=== PATIENT | female | born 1950 | race Caucasian/White ===

== ENCOUNTER 2024-08-11 15:44 | Inpatient (IN) | payer MEDICARE, OTHER, SELFPAY ==
[2024-08-11] VITALS (26 sets, daily range): BP systolic 86–164; BP diastolic 50–98; BMI 34.4; BMI 28.9
--- NOTE | 2024-08-11 12:13 | ED.GENMED ---
History of Present Illness
General
Chief Complaint: Change in Mental Status
Source: patient and ambulance crew
Exam Limitations: none
Time Seen by Provider: 08/11/24 12:07
Nursing documentation reviewed up to this point in time: agreed with
History of Present Illness
History of Present Illness:
74-year-old female presents emergency department after family was unable to reach her for 2 days. She complains of global pain and had tachycardia. EMS called due to her low blood pressure and tachycardia.
Past History
Past History
ED Past Medical History: Arrthythmia and IDDM
Review of Systems
Review of Systems
Allergies reviewed?: Yes
All Other Systems: Not applicable
Constitutional: Reports fever
Respiratory: Reports no symptoms
Cardiac: Reports no symptoms
ABD/GI: Reports no symptoms
: Reports no symptoms
Musculoskeletal: Reports joint pain and muscle pain
Skin: Reports no symptoms
Neurological: Reports no symptoms
Endocrine: Reports no symptoms
Hematologic/Lymphatic: Reports no symptoms
Phy Exam
Physical Exam
Physical Exam:
Physical Exam
General: Chronic ill appearance, afebrile
Neck: supple. no meningeal signs. normal posterior pharynx
Heart: s1/s2 tachycardia, no murmur. equal radial
pulses.
HEENT: Pupils equal round reactive to light, EOMI
Lungs: no acute respiratory distress. clear bilaterally
Abdomen: normal bowel sounds. not tender. no CVAT
Neuro: alert and oriented to person place. no focal neurological deficits cranial nerves II through XII intact
Skin: no rash, wound VAC on back, but not in place
Psychiatric: Poorly kept. interactive and cooperative
Extremities: no edema. no calf tenderness. negative homans. good distal pulses
Scores
Heart Failure Risk
Heart Failure Risk Score: Yes
History of Stroke or TIA: No
History of intubation for respiratory distress: No
Heart rate on ED arrival >/= 110: Yes
SaO2 <90% on arrival on room air: No
HR >/=110 during 3min walk test (or too ill to perform test): Yes
ECG has acute ischemic changes: No
Urea >/=12mmol/L (BUN 33.6mg/dL): No
Serum CO2>/=35mmol/L: No
Troponin I or T elevated to MS Level (0.4mg/dL): No
NT-proBNP >/=5,000ng/L (5,000pg/ml): Yes
HF Risk Score: 3
Admission Status: HIGH RISK 15.9% Consider SNF treatment or admission to hospital
Course
Orders/Labs/Results
Orders:
Orders
08/11/24 12:08
IV Insert/Care/Rem.- Treatment PRN
0.9% Sodium Chloride 1000 ml [Nss] 1,000 ml IV BOLUS
Pulse Ox/cont/shift [RESP] Stat
Quantity: 1
08/11/24 12:11
Electrocardiogram (*1) Stat
Reason for Study: Other
Other Reason for Exam: chest pain
Cardiac Monitoring- Treatment ONCE
EKG- Treatment ONCE
08/11/24 12:13
CR Chest Portable - 1 View Urgent
Comment:
Reason For Exam: tachycardia, altered mental status
Reason Study Needs to be Portable: Patient Unstable
08/11/24 12:17
Complete Blood Count/With Diff Urgent
Comprehensive Metabolic Panel Urgent
Lactic Acid Q4H
Comment: CANCEL 2nd LACTIC ACID IF 1st LACTIC ACID IS LESS THAN 2
Magnesium Urgent
NT-proBNP Urgent
PTT Urgent
Prothrombin Time Urgent
Troponin I Urgent
08/11/24 12:35
Diltiazem 125 mg/125 ml Nss [Cardizem] 125 mg in 125 ml IV NOW
Initial dose in mg/hr, then titrate:: 5
Titrate to keep:: Heart rate 80-100 bpm
Titrate by mg/hr:: 5 mg/hr
Frequency of titrations (minutes):: 15
Maximum dose in mg/hr:: 15
08/11/24 12:54
Straight cath- Treatment ONCE
08/11/24 13:30
Urinalysis Reflex To Culture Urgent
Date Specimen was Collected: 08/11/24
Time Specimen was Collected: 13:29
Comment: straight cath
Urine Microscopic Reflex Cult Urgent
Urine Culture Urgent
JING Source: U
Specimen Description:
Date Specimen was Collected: 08/11/24
Time Specimen was Collected: 13:29
08/11/24 14:22
Morphine Sulfate 4 mg IV NOW STA
Ondansetron Injectable [Zofran] 4 mg IV NOW STA
08/11/24 14:27
Electrocardiogram (*1) Urgent
EKG- Treatment ONCE
08/11/24 14:29
CefTRIAXone [Rocephin] 2,000 mg IV NOW STA
08/11/24 16:15
Lactic Acid Q4H
Comment: CANCEL 2nd LACTIC ACID IF 1st LACTIC ACID IS LESS THAN 2
Abnormal Lab Results
08/11/24 08/11/24
12:17 13:30
WBC 16.7 H 10^3/uL
(4.8-10.8)
RBC 3.50 L 10^6/uL
(4.20-5.40)
Hgb 10.6 L g/dL
(12.0-16.0)
Hct 32.3 L %
(37.0-47.0)
MCHC 32.8 L g/dL
(33.0-37.0)
RDW 14.7 H %
(11.5-14.5)
Abs Immat Gran (auto) 0.1 H 10^3/uL
(0-0.05)
Absolute Neuts (auto) 11.9 H 10^3/uL
(1.4-6.5)
Absolute Monos (auto) 1.9 H 10^3/uL
(0.1-0.6)
Lymphocytes % 17.0 L %
(20.5-51.1)
Monocytes % 11.2 H %
(1.7-9.3)
Carbon Dioxide 20 L mmol/L
(22-30)
BUN 20 H mg/dl
(7-17)
Glucose 192 H mg/dl
(70-99)
Magnesium 1.2 L mg/dl
(1.6-2.3)
Troponin I 0.206 H* ng/ml
Urine Ketones 3+ A
(Negative)
Urine Bilirubin 1+ A
(Negative)
Leukocyte Esterase Rfl 3+ A
(Negative)
Urine WBC (Reflex) 30-40 A /HPF
(0-5)
Urine Bacteria (Reflex) Many A
(Negative)
Urine Albumin (Reflex) 2+ A
(Neg - Trace)
08/11/24 12:17
08/11/24 12:17
Vital Signs
Initial and Last Documented VS:
Initial Vital Signs
Temp Pulse Resp BP Pulse Ox
98.0 F 164 18 119/88 97
08/11/24 11:57 08/11/24 11:57 08/11/24 11:57 08/11/24 11:57 08/11/24 11:57
Last Documented Vital Signs
Temp Pulse Resp BP Pulse Ox
98.0 F 184 20 118/89 97
08/11/24 11:57 08/11/24 13:00 08/11/24 13:00 08/11/24 13:00 08/11/24 11:57
MDM/Problems Addressed
Differential Diagnosis Includes:
Atrial tachycardia, A-fib, SVT, UTI, pneumonia, CHF, sacral ulcer
MDM/Problems Addressed:
74-year-old female with atrial tachycardia versus A-fib versus SVT, UTI, weakness, elevated BNP with likely mild CHF, sacral ulcer stage IV. Wound care consult. Converted to a sinus rhythm after diltiazem drip. Admit to hospitalist. IV Rocephin.
Chronic conditions affecting care: Arrhythmia
Acute Exacerbation and/or Progression of Chronic Illness: Arrhythmia
*Radiology
Radiology exam reviewed: radiology read reviewed (Chest x-ray no acute findings)
*Pulse Oximetry
Patient hypoxic: no
*EKG
Interpreted by ED Provider?: Yes
EKG Intrepretation Date: 08/11/24
EKG Intrepretation Time: 12:05
Interpretation: abnormal
Comparison EKG: no comparison EKG present
Heart Rate: 183
Rate: tachycardiac
Rhythm: SVT
[place]: normal axis
Interval: normal interval
QRS Pattern: normal QRS
Ischemia: no ischemia
*Dip Painter Interpretation
Rate: tachycardiac
Interpretation: abnormal
Heart Rate: 180
Rhythm: SVT
*Critical Care Note
Total Time (30-74mins, 75-104mins- exclusive of procedures): 30
comment:
Critical care statement: A total of 30 minutes of critical care time was provided for this patient. This includes management of unstable vital signs, evaluation of the patient at bedside, reviewing the patient's pertinent medical records, discussion
with consultants, review of old EKGs and review of pertinent medical records. This time with separate from time utilized to perform the aforementioned documented procedures
Patient Management
Social determinants of health affecting care: Living situation and Poor outpatient follow-up
Discussion with other providers: Hospitalist
Escalation/DeEscalation of care consider admission/obs:
Admission indicated
ED Attending Note
-
Portions of this chart may have been created with voice recognition software.� Occasional wrong word or��sound alike� substitutions may have occurred due to the inherent limitations of voice recognition software.
Discharge Plan
Departure
Patient Disposition: Admit
Date of Disposition: 08/11/24
Time of Disposition: 14:23
Admit to: IMU
Presentation/result/management discussed w/ accepting MD/DO: Hospitalist
Patient with high blood pressure during this ER visit?: No
Condition: Good
Discharge Problem:
Acute UTI, Atrial tachycardia, Weakness, Sacral decubitus ulcer, stage IV
Referrals:
PRIVATE,PHYSICIAN [Family Provider] -
Interventions
Interventions:
*Risk Screen - Suicide Last Done: 08/11/24 12:53
*General Assessment Last Done: 08/11/24 11:57
*Neglect/Abuse Screening Last Done: 08/11/24 12:53
*ED COVID-19 Vaccine History Last Done: 08/11/24 12:53
ED- Pulmonary Assessment Last Done: 08/11/24 12:56
ED- Neurological Assessment Last Done: 08/11/24 12:30
ED- Cardiac Assessment Last Done: 08/11/24 12:56
ED Swallowing Screen Last Done: 08/11/24 12:30
Discharge Date and Time
Print Language: JAPANESE
[2024-08-11 12:39] LABS: % Basophils 0.2 % (0-2); % Eosinophils 0.1 % (0-6); % Immature Granulocytes 0.5 % (0-0.5); % Monocytes 11.2 % (1.7-9.3); Absolute Immature Granulocytes 0.1 10^3/uL (0-0.05); Absolute Lymphocytes 2.9 10^3/uL (1.2-3.4); Absolute Monocytes 1.9 10^3/uL (0.1-0.6); Absolute Neutrophils 11.9 10^3/uL (1.4-6.5); Hematocrit 32.3 % (37.0-47.0); Hemoglobin 10.6 g/dL (12.0-16.0); Mean Corp Hgb Conc. 32.8 g/dL (33.0-37.0); Mean Corpuscular Hgb 30.3 pg (27.0-31.0); Mean Corpuscular Volume 92.3 fL (81.0-99.0); Mean Platelet Volume 10.2 fL (7.4-10.4); Nucleated Red Blood Cells % 0 %; Platelet Count 268 10^3/uL (130-400); Red Cell Dist. Width 14.7 % (11.5-14.5); White Blood Cell Count 16.7 10^3/uL (4.8-10.8)
[2024-08-11] MEDS: NSS 1000 IV (12:39)
[2024-08-11] MEDS: CARDIZEM 125 IV (12:43)
[2024-08-11 12:48] LABS: INR 1.09; PT 14.4 Sec (11.4-14.6)
[2024-08-11 12:49] LABS: APTT 31.7 Sec (23.4-35.0)
[2024-08-11 12:56] LABS: Lactic Acid 1.4 mmol/L (0.7-2.0)
[2024-08-11 12:57] LABS: ALT (SGPT) 12 U/L (0-35); AST (SGOT) 22 U/L (14-36); Alkaline Phosphatase 77 U/L (38-126); Blood Urea Nitrogen 20 mg/dl (7-17); Calcium 9.3 mg/dl (8.4-10.2); Carbon Dioxide 20 mmol/L (22-30); Chloride 100 mmol/L (98-107); Glucose 192 mg/dl (70-99); Magnesium 1.2 mg/dl (1.6-2.3); Sodium 138 mmol/L (135-145); Total Protein 7.1 g/dl (6.3-8.2); eGFR > 60.00
[2024-08-11 13:11] LABS: NT-proBNP 7480 pg/ml; Troponin I 0.206 ng/ml
[2024-08-11 14:16] LABS: Urine Albumin 2+ (Neg - Trace); Urine Bilirubin 1+ (Negative); Urine Character Cloudy (Clear); Urine Color Yellow; Urine Glucose Negative (Negative); Urine Ketone 3+ (Negative); Urine Leukocyte 3+ (Negative); Urine Nitrite Negative (Negative); Urine Occult Blood Negative (Negative); Urine Specific Gravity 1.025 (<1.030); Urine Urobilinogen 1+ (Neg - 1+)
[2024-08-11 14:30] LABS: Urine Bacteria Many (Negative); Urine Red Blood Cell 0-2 /HPF (0-2); Urine Squamous Cell 0-2 /LPF (Few); Urine White Cell 30-40 /HPF (0-5)
--- NOTE | 2024-08-11 14:34 | WOUNDNOTE ---
[facility] RN note: Patient admitted with change in mental status. Patient lives at home alone and has been bedbound recently. She was released from rehab 08/04/24. Sisters present.
See H&P for complete history.
PMH: Lumbar stage 4 pressure injury from a previous fall and laid in a awkward position, obesity, IDDM.
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 +Scattered yeast rash around wound. Drainage serous and slightly murky. Wound vac has been disconnected since yesterday.
Blanchable red heels.
Appetite: poor.
Pressure redistribution devices in place: ED stretcher. She cannot turn self in bed.
Plan: Lumbar dressing changed. Will give a vac break d/t suspect bioburden and re-evaluate next week. Air chair cushion placed under sacral/buttocks. Heels off bed with pillow. Patient turned with help from ED RN Rita.
Updated Dr. Cifuentes who approved local wound care, air mattress.
Care plan to be updated and will follow as needed. Patient's sister aware to take home her home vac ([employer]).
Note to case management of equipment requested for discharge: Air mattress at SNF/rehab.
Recommend follow up at wound care center upon discharge.
[2024-08-11] MEDS: MORPHINE SULFATE 4 MG IV (14:54)
[2024-08-11] MEDS: ZOFRAN 4 MG IV (14:54)
[2024-08-11] MEDS: ROCEPHIN 2000 MG IV (14:54)
--- NOTE | 2024-08-11 15:19 | HPS.HSE ---
Family Physician
-
Family Physician: PHYSICIAN PRIVATE
Chief Complaint
-
fell
History of Present Illness
74-year-old female with extensive past medical history is presenting from home via EMS as sisters were unable to contact patient for 2 days. Patient continues to that she is in significant amount of feet pain due to her neuropathy. Per the 2
sisters at bedside patient recently moved to [place] from [place]. Patient has chronic sacral wound and was on wound VAC. In the ER patient was found to have a heart rate of 188 SVT and was started on Cardizem infusion. Patient denies any
chest pain, palpitations, shortness of breath. States of significant lower extremity pain. Denies any nausea, vomiting or diarrhea. Per sister patient has history of falls and depression. Patient heart rate going to normal sinus rhythm and
Cardizem infusion was discontinued. 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 Persistence patient also has a history of frequent urinary tract infection. In the
ER patient was found to evaluate troponin and proBNP.
Medical History
Past Medical History
Past Medical History: Reports Other
Additional Past Medical History:
Breast cancer status post chemotherapy radiation mastectomy
Atrial fibrillation unknown chronicity
Neuropathy secondary to chemotherapy
Depression
Diabetes mellitus
Gout
Hypothyroidism
Obesity due to excess calories
History of multiple falls
Sacral wound
Past Surgical History: Reports Other
Additional Past Surgical History:
Breast cancer status post mastectomy
Hysterectomy
Social History
Tobacco: Former Smoker
Family History
Family History: Not pertinent
Allergies / Home Medications
Allergies reflects when Allergies were last updated in [facility] [employer].
Home Medications with original date entered in [facility]
Allergy/Medication List:
Allergies
Allergy/AdvReac Type Severity Reaction Status Date / Time
No Known Allergies Allergy Unverified 08/11/24 12:26
Home Medications
acetaminophen 325 mg tablet (Tylenol) 650 mg PO Q6HPRN PRN mild pain 08/11/24
allopurinol 100 mg tablet 100 mg PO DAILY Gout 08/11/24
amlodipine 5 mg tablet (Norvasc) 5 mg PO DAILY Blood Pressure 08/11/24
apixaban 5 mg tablet (Eliquis) 5 mg PO BID Blood Clot Prevention/Tx 08/11/24
bupropion HCl 300 mg 24 hr tablet, extended release (Wellbutrin XL) 300 mg PO DAILY Neurological Condition 08/11/24
insulin lispro 100 unit/mL subcutaneous pen (Humalog KwikPen (U-100) Insulin) 1 sliding scale dose SC AC Diabetes 08/11/24
levothyroxine 125 mcg tablet (Synthroid) 125 mcg PO DAILY Thyroid 08/11/24
losartan 100 mg tablet 100 mg PO DAILY Blood Pressure 08/11/24
metoprolol succinate 25 mg tablet,extended release 24 hr (Toprol XL) 25 mg PO DAILY Blood Pressure 08/11/24
ondansetron HCl 4 mg tablet 4 mg PO Q6HPRN PRN nausea 08/11/24
pregabalin 75 mg capsule (Lyrica) 75 mg PO BID Pain 08/11/24
raloxifene 60 mg tablet 60 mg PO DAILY Hormonal Agent 08/11/24
rosuvastatin 20 mg tablet (Crestor) 20 mg PO DAILY High Cholesterol 08/11/24
Review of Systems
-
History Source: Patient and Family
A 12 point ROS was completed and negative except as noted: Yes
Physical Exam
Vital Signs
Vital Signs
Temp Pulse Resp BP Pulse Ox
98.0 F 88 18 111/78 98
08/11/24 14:59 08/11/24 14:59 08/11/24 14:59 08/11/24 14:59 08/11/24 14:59
Physical Exam
General: No Apparent Distress, Appears in Distress, Pain, Appears Chronically Ill and Obese
HEENT: NormoCephalic, Moist mucous membranes and Atraumatic
Respiratory: Clear
Cardiac: S1/S2 and Regular Rhythm; No Murmur or Rub
GI: Soft, Non Tender, Non Distended and Normal Bowel Sounds; No Organomegaly
Rectal: Deferred by Provider
Musculoskeletal: No Clubbing, No Cyanosis and No Edema
Skin: No Rash
Neuro: Awake, No Motor Deficits and Nonfocal/grossly intact
Psych: Calm
Laboratory Results
-
08/11/24 12:17
08/11/24 12:17
Laboratory Results
PT 14.4 Sec (11.4-14.6) 08/11/24 12:17
INR 1.09 08/11/24 12:17
APTT 31.7 Sec (23.4-35.0) 08/11/24 12:17
Lactic Acid 1.4 mmol/L (0.7-2.0) 08/11/24 12:17
Total Bilirubin 1.0 mg/dl (0.2-1.3) 08/11/24 12:17
AST 22 U/L (14-36) 08/11/24 12:17
ALT 12 U/L (0-35) 08/11/24 12:17
Alkaline Phosphatase 77 U/L (38-126) 08/11/24 12:17
Troponin I 0.206 ng/ml H* 08/11/24 12:17
Impression/Plan
-
#Tachycardia likely secondary to SVT versus atrial fibrillation unknown chronicity
Converted to normal sinus rhythm
Status post off Cardizem infusion
Start patient on metoprolol home dose
Monitor on telemetry
Hold norvasc as may need to be switched to Cardizem
Continue with Eliquis
Cardiology evaluation
#Elevated troponin likely secondary to tachycardia versus rule out ACS
Continue to trend troponin
Echocardiogram
#CHF unclear systolic versus diastolic
Echocardiogram pending
Not on diuretics
#Diabetes mellitus
Insulin sliding scale Accu-Cheks and A1c
# Leukocytosis likely secondary to suspected urinary tract infection
Continue with antibiotics
follow-up on the urine cultures
Chest x-ray negative for acute infiltrates
If spikes fever check blood cultures
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
Continue with Lyrica
Pain control
Tylenol/oxycodone
Chronic ambulatory dysfunction
Physical & Occupational Therapy
Hyperlipidemia
Continue statin
Hypothyroidism
Continue Synthroid
Check TSH
Hypomagnesemia
Replete and monitor
Mag 1.2 noted
Primary hypertension
Hold Norvasc as may need to be switched to Cardizem
Continue Toprol
Hold losartan for now
DVT ppx-Eliquis
Full code
Discussed with patient 2 sisters at bedside in detail
I spent a total of 80 minutes with the patient or on the floor. More than 50% of this time involved counseling and coordination of care.
[2024-08-11] MEDS: MAGNESIUM SULFATE 100 IV (16:44)
--- NOTE | 2024-08-11 17:02 | CON.CAR ---
Addendum entered and electronically signed by Garett Ellington MD 08/11/24 18:02:
Patient seen and evaluated in collaboration with FLANGING MACHINE OPERATOR; agree with below.
-74-year-old female with known paroxysmal atrial fibrillation (on Eliquis) admitted with a UTI; found to have SVT to 180s that broke on a Cardizem drip, which has now been discontinued.
-Echocardiogram today revealed normal cardiac function (EF 65%) and no significant valvulopathy.
-Minimal troponin elevation is most likely secondary to acute nonischemic myocardial injury in the setting of infection and tachyarrhythmia.
-Recommend treatment of UTI as per primary team.
-Will increase from Toprol-XL to 25 mg once daily to 25 mg twice daily; will discontinue amlodipine to allow more blood pressure room for increase in beta-henok.
-No further cardiac recommendations at this time; the patient can follow-up with her primary Business Development Analyst as an outpatient.
-Cardiology will remain available on an as-needed basis.
Original Note:
Consultation
Consultation Request
Date/Time Consultation Requested: 08/11/24 1512
Date/Time Consultation Performed: 08/11/24 1700
Requesting Provider: Dr. Calle
Performing Provider: Nicole ROQUE for Dr. Ellington
Reason for Consultation: Arrhythmia, elevated troponin, CHF
Medical History
-
Chief Complaint: feet pain
History of Present Illness:
74 y/o female with DM2, PAF on Eliquis, sacral ulcer, hx breast cancer, and hypertension who is here after she was unable to be reached by phone from family and when she was seen she had foot pain and tachycardia. In the ER, she was seen to be in
SVT in 180's. She was briefly on a diltiazem drip and she is now in SR. She does not have any CP, SOB, dizziness, or palpitations. She reports foot pain (which sounds to be [id number]). Troponin is 0.2. Echo is normal.
Past Medical History
Past Medical History: Arrhythmias, Cancer and HTN
Social History
Tobacco: Former Smoker
Family History
Family History: Reviewed & Not Pertinent
Allergies / Home Medications
Allergy/AdvReac Type Severity Reaction Status Date / Time
No Known Allergies Allergy Unverified 08/11/24 12:26
�Medication �Instructions �Recorded �Confirmed �Type
acetaminophen 325 mg tablet 650 mg PO Q6HPRN PRN mild pain 08/11/24 08/11/24 History
(Tylenol)
allopurinol 100 mg tablet 100 mg PO DAILY Gout 08/11/24 08/11/24 History
amlodipine 5 mg tablet (Norvasc) 5 mg PO DAILY Blood Pressure 08/11/24 08/11/24 History
apixaban 5 mg tablet (Eliquis) 5 mg PO BID Blood Clot 08/11/24 08/11/24 History
Prevention/Tx
bupropion HCl 300 mg 24 hr tablet, 300 mg PO DAILY Neurological 08/11/24 08/11/24 History
extended release (Wellbutrin XL) Condition
insulin lispro 100 unit/mL 1 sliding scale dose SC AC Diabetes 08/11/24 08/11/24 History
subcutaneous pen (Humalog KwikPen
(U-100) Insulin)
levothyroxine 125 mcg tablet 125 mcg PO DAILY Thyroid 08/11/24 08/11/24 History
(Synthroid)
losartan 100 mg tablet 100 mg PO DAILY Blood Pressure 08/11/24 08/11/24 History
metoprolol succinate 25 mg 25 mg PO DAILY Blood Pressure 08/11/24 08/11/24 History
tablet,extended release 24 hr
(Toprol XL)
ondansetron HCl 4 mg tablet 4 mg PO Q6HPRN PRN nausea 08/11/24 08/11/24 History
pregabalin 75 mg capsule (Lyrica) 75 mg PO BID Pain 08/11/24 08/11/24 History
raloxifene 60 mg tablet 60 mg PO DAILY Hormonal Agent 08/11/24 08/11/24 History
rosuvastatin 20 mg tablet (Crestor) 20 mg PO DAILY High Cholesterol 08/11/24 08/11/24 History
Review of Systems
-
History Source: Patient and Other (and chart)
Musculoskeletal: Other (foot pain)
Physical Exam
Vital Signs
Temp Pulse Resp BP Pulse Ox
98.0 F 81 19 120/61 98
08/11/24 14:59 08/11/24 16:30 08/11/24 16:30 08/11/24 16:30 08/11/24 14:59
Lab Results
08/11/24 12:17
08/11/24 12:17
Troponin I 0.206 ng/ml H* 08/11/24 12:17
Xva-O-Fpkelwdxutw Pept 7480 pg/ml 08/11/24 12:17
Physical Exam
General: Well Developed and No Apparent Distress
HEENT: Normocephalic and Anicteric
Respiratory: Clear and Non Labored Respirations
Cardiac: Regular Rhythm
Musculoskeletal: No Edema
Skin: Warm and Dry
Neuro: Awake and Alert
Impression / Plan
-
SVT:
-now stable in SR
-increase BB (stop amlodipine to make BP room for this)
UTI:
-on ABX, management per primary team
Abnormal troponin:
-acute, non-ischemic myocardial injury in the setting of SVT
-no CP and normal echo
Elevated proBNP:
-despite elevated proBNP, there are no clinical signs of CHF (lungs clear, no edema, no SOB, CXR stable, echo normal)
PAF:
-stable in SR
-increase BB as above
-continue Eliquis
Hypomagnesemia:
-being replaced
HTN:
-monitor with increased BB
-stop amlodipine to make BP room for this change
Data Reviewed
-
EKG: Tracing Personally Visualized and interpreted (SVT 183 BPM, NT ST and T abnormalities)
Radiology: Report Reviewed by me (no acute pulmonary process)
Medical Tests (Nuc Med, Echo etc): Report Reviewed by me (Echo 08/11/24: EF 65%. No significant valve abnormalities.)
Labs: Labs Reviewed by me
--- NOTE | 2024-08-11 18:30 | PTCARENOTE ---
patient arrived to floor via stretcher from ER crying and screaming. she reports b/l leg pain but unable to tell me her baseline pain level and if this is change for her. Magnesium rider infusing in left hand, left upper arm with +2 edema.
elevated on pillows. turns with max assist x2, vss, telemetry maintained, NSR on playground monitor. oriented to room and use of call urrutia, will continue to monitor.
--- NOTE | 2024-08-11 18:33 | PTCARENOTE ---
patient with weight change (see documentation). Dr. Calle made aware, will continue to monitor.
[2024-08-11] MEDS: NOVOLOG FLEXPEN-LOW RESISTANCE SC (20:14)
--- NOTE | 2024-08-11 20:15 | VATNOTE ---
ON ROUTINE ROUNDS , PT NOTED TO HAVE VERY LARGE INFILTRATED AREA IN LAC. REMOVED 20G USG FORM EMR. PCN MADE AWARE. NO INFUSATE INFUSING AT THIS TIME. ARM ELEVATED. PT REPORTS NO PAIN OR DISCOMFORT.
--- NOTE | 2024-08-11 20:20 | PTCARENOTE ---
Assumed care of patient from previous RN - patient arrived to unit just before change of shift. Patient alert, confused at times which appears to be to time and place. Patient moaning and crying out in pain when awake. Patient with outstanding labs
for troponin to be drawn, will obtain. Left arm found to be swollen by ASSOCIATE PASTOR during rounds on patient -- per VAT nurse, AC IV was ultrasound guided, removed per VAT nurse. Elevated left arm on pillows and maintained throughout shift. Call urrutia in
reach, patient will ring for assistance. Will continue to monitor.
[2024-08-11] MEDS: DESENEX/MITRAZOL/ZEASORB 1 APPLIC TOPICAL (20:42)
[2024-08-11] MEDS: TOPROL XL 25 MG PO (20:45)
[2024-08-11] MEDS: SENOKOT-S 1 TABLET PO (20:46)
[2024-08-11] MEDS: ELIQUIS 5 MG PO (20:46)
[2024-08-11] MEDS: ROXICODONE 5 MG PO (20:49)
[2024-08-11] MEDS: LYRICA 75 MG PO (20:49)
[2024-08-11 21:00] LABS: Troponin I 0.252 ng/ml
[2024-08-11 21:58] LABS: Glucose - Point of Care 152 mg/dl (70-99)
--- NOTE | 2024-08-11 22:30 | PTCARENOTE ---
Critical troponin called by lab -- resulted 0.252. JUDE Trujillo notified, next troponin ordered to be drawn at 0100 08/12. DYED RAW STOCK BLOWER FEEDER ordered additional troponin to be drawn at 0600 in order to trend until peak. Will continue to monitor.
[2024-08-12] VITALS (8 sets, daily range): BP systolic 97–160; BP diastolic 60–81; PULSE 60–90; BMI 28.7
[2024-08-12 02:08] LABS: Troponin I 0.158 ng/ml
[2024-08-12] MEDS: SYNTHROID 125 MCG PO (05:58)
[2024-08-12] MEDS: ROXICODONE 5 MG PO ×2 (06:53→15:16)
[2024-08-12 07:52] LABS: Glucose - Point of Care 133 mg/dl (70-99)
[2024-08-12 07:52] LABS: % Basophils 0.3 % (0-2); % Immature Granulocytes 0.3 % (0-0.5); % Lymphocytes 11.7 % (20.5-51.1); % Monocytes 8.8 % (1.7-9.3); % Neutrophils 77.9 % (42.2-75.2); Absolute Eosinophils 0.1 10^3/uL (0-0.7); Absolute Lymphocytes 1.5 10^3/uL (1.2-3.4); Absolute Monocytes 1.1 10^3/uL (0.1-0.6); Absolute Neutrophils 9.7 10^3/uL (1.4-6.5); Hematocrit 30.3 % (37.0-47.0); Hemoglobin 9.8 g/dL (12.0-16.0); Mean Corp Hgb Conc. 32.3 g/dL (33.0-37.0); Mean Corpuscular Volume 92.7 fL (81.0-99.0); Mean Platelet Volume 9.8 fL (7.4-10.4); Nucleated Red Blood Cells % 0 %; Platelet Count 248 10^3/uL (130-400); Red Blood Cell Count 3.27 10^6/uL (4.20-5.40); Red Cell Dist. Width 14.9 % (11.5-14.5); White Blood Cell Count 12.5 10^3/uL (4.8-10.8)
[2024-08-12 08:15] LABS: Troponin I 0.097 ng/ml
[2024-08-12] MEDS: LYRICA 75 MG PO ×2 (08:16→21:36)
[2024-08-12] MEDS: SENOKOT-S 1 TABLET PO ×2 (08:16→21:30)
[2024-08-12] MEDS: TOPROL XL 25 MG PO ×2 (08:16→21:30)
[2024-08-12] MEDS: CRESTOR 20 MG PO (08:16)
[2024-08-12] MEDS: WELLBUTRIN XL (24 hour extended release) 300 MG PO (08:16)
[2024-08-12] MEDS: ELIQUIS 5 MG PO ×2 (08:16→21:30)
[2024-08-12] MEDS: ZYLOPRIM 100 MG PO (08:17)
[2024-08-12] MEDS: EVISTA 60 MG PO (08:17)
[2024-08-12] MEDS: MIRALAX 17 GRAMS PO (08:18)
[2024-08-12] MEDS: NOVOLOG FLEXPEN-LOW RESISTANCE SC (08:18)
[2024-08-12 08:52] LABS: TSH 3.29 uIU/ml (0.47-4.68)
[2024-08-12 09:14] LABS: Blood Urea Nitrogen 19 mg/dl (7-17); Calcium 8.9 mg/dl (8.4-10.2); Carbon Dioxide 19 mmol/L (22-30); Chloride 103 mmol/L (98-107); Estimated Creatinine Clearance 63 ml/min; Glucose 164 mg/dl (70-99); Potassium 4.1 mmol/L (3.5-5.1); Sodium 138 mmol/L (135-145); eGFR > 60.00
[2024-08-12] MEDS: DAKIN'S SOLUTION 0.125% 1/4 STRENGTH 473 ML TOPICAL (11:22)
[2024-08-12] MEDS: DESENEX/MITRAZOL/ZEASORB 1 APPLIC TOPICAL ×2 (11:23→21:36)
--- NOTE | 2024-08-12 12:27 | W.PN.HOSP.TC ---
Today's Communication/Plan
-
Continue with antibiotic
DC fluid
Monitor heart rate
Physical and Occupational Therapy
May require placement
Monitor mood
Assessment / Plan
Assessment / Plan
#Tachycardia likely secondary to SVT
# atrial fibrillation unknown chronicity
Converted to normal sinus rhythm
Status post off Cardizem infusion
Start patient on metoprolol home dose and increased to BID dosing
Monitor on telemetry
Hold norvasc
Continue with Eliquis
Cardiology evaluation
# Nonischemic myocardial injury
Continue to trend troponint-trop downtrended.
Echocardiogram noted.
#Chronic HFpEF
Echocardiogram noted
Not on diuretics
#Diabetes mellitus
Insulin sliding scale Accu-Cheks and A1c
# Leukocytosis likely secondary to suspected urinary tract infection
Continue with antibiotics
follow-up on the urine cultures
Chest x-ray negative for acute infiltrates
If spikes fever check blood cultures
wbc improving
# Urinary retention likely secondary to UTI versus pain versus decreased mobility
Bladder scan per the protocol.
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
Continue with Lyrica
Pain control
Tylenol/oxycodone
Chronic ambulatory dysfunction
Physical & Occupational Therapy
Hyperlipidemia
Continue statin
Hypothyroidism
Continue Synthroid
Check TSH-wnl
Hypomagnesemia
Replete and monitor
Primary hypertension
Hold Norvasc as may need to be switched to Cardizem
Continue Toprol
Hold losartan for now
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
Had wound VAC on admission. Discontinued no further need for now.
Wound care ifmjijisl-yiemaz-ac recs on Wednesday
Depression
Continue with Wellbutrin
May need to add additional agent
DVT ppx-Eliquis
Full code
Discussed with patient 2 sisters at bedside in detail on my admission
PT/OT-probably will require placement
Anticipated Discharge: > 48 hours
Subjective/Interval History
-
Date of Service: August 12, 2024
crying this am
retaining urine
Objective Data
-
Labs:
Laboratory Results
08/12/24
07:37
WBC 12.5 H
Hgb 9.8 L
Hct 30.3 L
Plt Count 248
Sodium 138
Potassium 4.1
Chloride 103
Carbon Dioxide 19 L
BUN 19 H
Creatinine 0.7
Glucose 164 H
Calcium 8.9
Vital Signs:
Vital Signs
Temp Pulse Resp BP Pulse Ox
97.7 F 80 16 143/66 99
08/12/24 07:30 08/12/24 07:30 08/12/24 07:30 08/12/24 07:30 08/12/24 07:30
I&O
08/11/24 08/12/24 08/13/24
06:59 06:59 06:59
Intake Total 580 / 580
Output Total 500 / 500
Balance 580 / 580 -500 / -500
[2024-08-12 12:31] LABS: Glycohemoglobin (HgbA1c) 6.7 % (4.0-5.6)
[2024-08-12 13:13] LABS: Glucose - Point of Care 166 mg/dl (70-99)
[2024-08-12] MEDS: NOVOLOG FLEXPEN-LOW RESISTANCE 1 UNITS SC (13:14)
--- NOTE | 2024-08-12 14:10 | CM ---
Met with patient and her sister,Natalie in room. Patient moved recently to [place]. She was in SNF in [place] 05/22/24-05/28/24 . hospitalized 05/28/24- 05/31/24. left snf 07/02/24. admitted to [facility] 07/14/24-08/01/24. [facility],PT ,SW.
Patient has rolling walker, cane, w/c, shower chair and rails, RTS with rails, wound supplies and wound vac at home.
PCP is Francie ford APPLICATION SUPPORT TECHNICIAN
[facility].
Discussed snf options.Both agree to referrals in [facility], [facility] in [place]
referrals sent in care port.
PLan: snf
[2024-08-12] MEDS: ROCEPHIN 1000 MG IV (15:13)
[2024-08-12] MEDS: STERILE WATER FOR INJECTION 10 ML IV (15:14)
[2024-08-12 16:29] LABS: Glucose - Point of Care 208 mg/dl (70-99)
[2024-08-12] MEDS: NOVOLOG FLEXPEN-LOW RESISTANCE 2 UNITS SC (16:41)
[2024-08-12 21:32] LABS: Glucose - Point of Care 152 mg/dl (70-99)
[2024-08-13 03:22] VITALS: BP 144/74
[2024-08-13] MEDS: SYNTHROID 125 MCG PO (04:32)
[2024-08-13] MEDS: ROXICODONE 5 MG PO ×2 (04:32→11:02)
--- NOTE | 2024-08-13 04:55 | PTCARENOTE ---
Addendum entered by Valorie Mayer RN 08/13/24 06:01:
DOUBLE CUT SAWYER up to see patient, will order imaging of left arm to evaluate for any fractures. Will consider U/S of left arm following imaging and will discuss with day team. Will update primary physician in AM on concerns.
Addendum entered by Valorie Mayer RN 08/13/24 05:10:
Notified JUDE Kwon of patient complaints and new information provided. DOUBLE CUT SAWYER will stop by to see patient and come up with further plan. Will monitor.
Original Note:
Patient screaming out in severe pain to her left arm. +3/4 swelling noted to left arm upon admit to floor -- VAT nurse attributing to U/S guided site to Left AC. Line removed upon admit to unit yesterday. Patient will not allow staff to touch left
arm, seen holding her arm and rubbing her wrist on left side. Patient would not open her eyes throughout shift -- when questioned, patient states 'Well they are crusted shut.' Eyes did not appear crusted at all, provided patient with warm cloth and
wiped eyes. This RN asked patient to open her eyes, patient able to open eyes wide with no issue. Patient states she cares for herself at home, is able to go in the shower to wash, and goes to the bathroom when needed. When asked why she is unable
to move in bed, patient states 'I fell inside of my home. I hit my head. I was unconscious and that must be why I did not have any pain then. That is why I am here.' Patient incontinent of urine, saturated. Bladder scanned for 65mls. Cleansed with
wipes, mike care provided, gown and attends changed. Provided patient with oxy PRN -- see MAR. Will discuss with DOUBLE CUT SAWYER.
--- NOTE | 2024-08-13 05:32 | VATNOTE ---
ASKED TO RE-EVALUATE LUE AFTER NOTED SWELLING AND INFILTRATION FROM USG IV SITE IN EMR. SWELLING APPEARS TO BE UNCHANGED BUT UNABLE TO FULLY ASSESS LUE DUE TO PT SCREAMING IN PAIN AND UNABLE /UNWILLING TO MOVE ARM. SUGGESTED TO PCN THAT US AND XRAY
BE SUGGESTED TO PETROLEUM PRODUCTION ENGINEER TO R/O THROMBUS AND OR FX. VAT TO FOLLOW.
[2024-08-13 05:35] VITALS: BMI 28.1
--- NOTE | 2024-08-13 06:14 | W.PN.UPDATE ---
Update Note
Progress Note Update
RN notifies SENIOR MAINTENANCE MECHANIC. patient is excruciating pain upon touching the left arm/wrist. patient seen and evaluated. patient is Ox3, Patient voices pain on left wrist and forearm. RN reports there was a IV line that was placed at the left AC that was removed.
mild redness noted, trace to +1 edema. no old bruices, cuts noted, + pulses, + cap refill<3sec,
Patient is able to wiggle her fingers, but won't let the SENIOR MAINTENANCE MECHANIC touch and won't move/turn her left arm/wrist by herself. Reports she fell three years ago and arms been hurting since 4 months ago. Unsure if patient recalls what really happened or when
it happened.
will do Xray of the left arm/ wrist r/o fracture, and US left arm r/o DVT.
[2024-08-13 06:30] LABS: % Basophils 0.2 % (0-2); % Eosinophils 0.3 % (0-6); % Immature Granulocytes 0.5 % (0-0.5); % Lymphocytes 11.9 % (20.5-51.1); % Monocytes 11.9 % (1.7-9.3); % Neutrophils 75.2 % (42.2-75.2); Absolute Immature Granulocytes 0.1 10^3/uL (0-0.05); Absolute Lymphocytes 1.6 10^3/uL (1.2-3.4); Absolute Monocytes 1.6 10^3/uL (0.1-0.6); Absolute Neutrophils 9.8 10^3/uL (1.4-6.5); Hematocrit 27.5 % (37.0-47.0); Hemoglobin 8.9 g/dL (12.0-16.0); Mean Corp Hgb Conc. 32.4 g/dL (33.0-37.0); Mean Corpuscular Hgb 29.7 pg (27.0-31.0); Mean Corpuscular Volume 91.7 fL (81.0-99.0); Mean Platelet Volume 9.8 fL (7.4-10.4); Nucleated Red Blood Cells % 0 %; Platelet Count 228 10^3/uL (130-400); Red Cell Dist. Width 14.5 % (11.5-14.5)
[2024-08-13 06:53] LABS: Blood Urea Nitrogen 19 mg/dl (7-17); Calcium 8.5 mg/dl (8.4-10.2); Carbon Dioxide 23 mmol/L (22-30); Chloride 99 mmol/L (98-107); Estimated Creatinine Clearance 63 ml/min; Glucose 168 mg/dl (70-99); Potassium 3.7 mmol/L (3.5-5.1); Sodium 133 mmol/L (135-145); eGFR > 60.00
[2024-08-13 07:30] VITALS: BP 139/62
[2024-08-13 08:17] LABS: Glucose - Point of Care 176 mg/dl (70-99)
--- NOTE | 2024-08-13 10:40 | CM ---
CM following re: d/c planning.
Pt with complaints of arm pain today.
Med team is aware.
Re: dispo -
[facility] have offered pt a bed at time of d/c.
Confirming bed availability. No d/c planned for today.
Awaiting responses from other facilities.
CM continuing to follow.
[2024-08-13] MEDS: TOPROL XL 25 MG PO ×2 (10:54→21:00)
[2024-08-13] MEDS: ZYLOPRIM 100 MG PO (10:54)
[2024-08-13] MEDS: MIRALAX 17 GRAMS PO (10:54)
[2024-08-13] MEDS: EVISTA 60 MG PO (10:54)
[2024-08-13] MEDS: NOVOLOG FLEXPEN-LOW RESISTANCE SC (10:55)
[2024-08-13] MEDS: ELIQUIS 5 MG PO ×2 (10:55→20:59)
[2024-08-13] MEDS: WELLBUTRIN XL (24 hour extended release) 300 MG PO (10:55)
[2024-08-13] MEDS: CRESTOR 20 MG PO (10:55)
[2024-08-13] MEDS: DESENEX/MITRAZOL/ZEASORB 1 APPLIC TOPICAL ×2 (10:56→21:01)
[2024-08-13] MEDS: DAKIN'S SOLUTION 0.125% 1/4 STRENGTH 1 ML TOPICAL (10:56)
[2024-08-13] MEDS: SENOKOT-S 1 TABLET PO ×2 (10:59→21:00)
[2024-08-13] MEDS: LYRICA 75 MG PO ×2 (10:59→21:00)
[2024-08-13] MEDS: TYLENOL 650 MG PO ×2 (11:02→16:52)
[2024-08-13 11:30] VITALS: BP 127/64
[2024-08-13 12:02] LABS: Glucose - Point of Care 168 mg/dl (70-99)
--- NOTE | 2024-08-13 12:41 | W.PN.HOSP.TC ---
Today's Communication/Plan
-
wound care recs in am
IV abx
pain control
oob/pt
Assessment / Plan
Assessment / Plan
#Tachycardia likely secondary to SVT
# atrial fibrillation unknown chronicity
Converted to normal sinus rhythm
Status post off Cardizem infusion
Start patient on metoprolol home dose and increased to BID dosing
Monitor on telemetry
Hold norvasc
Continue with Eliquis
Cardiology signed off.
# Nonischemic myocardial injury
Continue to trend troponin -trop downtrended.
Echocardiogram noted.
#Chronic HFpEF
Echocardiogram noted
Not on diuretics
#Diabetes mellitus
Insulin sliding scale Accu-Cheks and A1c at 6.7
# Leukocytosis likely secondary to suspected E.coli urinary tract infection
Continue with antibiotics rocephin
follow-up on the urine cultures
Chest x-ray negative for acute infiltrates
If spikes fever check blood cultures
# Urinary retention likely secondary to UTI versus pain versus decreased mobility
Bladder scan per the protocol.
#LUE pain
-US negative for dvt
-xray wtih swelling
-?IV infiltration. pain improved. Good radial and ulna pulses. States pain has decreased. Able to flex/extend wrist without any difficulty.
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
Continue with Lyrica
Pain control
Tylenol/oxycodone
Chronic ambulatory dysfunction
Physical & Occupational Therapy-SNF on dc.
Hyperlipidemia
Continue statin
Hypothyroidism
Continue Synthroid
Check TSH-wnl
Hypomagnesemia
Replete and monitor
Primary hypertension
Hold Norvasc as may need to be switched to Cardizem
Continue Toprol
Hold losartan for now
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
Had wound VAC on admission. Discontinued no further need for now.
Wound care gqgozlkef-zhqxaa-ua recs on Wednesday
Depression
Continue with Wellbutrin
May need to add additional agent
DVT ppx-Eliquis
Full code
PT/OT-SNF on dc.
Anticipated Discharge: Within 24 hours
Subjective/Interval History
-
Date of Service: August 13, 2024
overnight events noted
states significant decrease in left hand pain. States pain was worse with the IV.
States of bilateral leg pain due to neuropathy.
Objective Data
-
Labs:
Laboratory Results
08/13/24
06:04
WBC 13.0 H
Hgb 8.9 L
Hct 27.5 L
Plt Count 228
Sodium 133 L
Potassium 3.7
Chloride 99
Carbon Dioxide 23
BUN 19 H
Creatinine 0.7
Glucose 168 H
Calcium 8.5
Vital Signs:
Vital Signs
Temp Pulse Resp BP Pulse Ox
98.9 F 72 18 127/64 98
08/13/24 11:30 08/13/24 11:30 08/13/24 11:30 08/13/24 11:30 08/13/24 11:30
I&O
08/12/24 08/13/24 08/14/24
06:59 06:59 06:59
Intake Total 580 / 580 180 / 180
Output Total 500 / 500
Balance 580 / 580 -320 / -320
Physical Exam
-
General: Well Developed and No Apparent Distress
HEENT: Normocephalic, Atraumatic and Moist Mucous Membranes
Respiratory: Clear to Auscultation
Cardiac: Regular Rhythm and S1/S2; Negative Murmur, Rub or Gallop
GI: Soft, Nontender, Nondistended and Normal Bowel Sounds; Negative Organomegaly
Rectal: Deferred by Provider
Musculoskeletal: No Clubbing, No Cyanosis and No Edema
Skin: Negative Rash
Neuro: Awake, Alert, Oriented, AO x 3, No Motor Deficits and Nonfocal/Grossly Intact
Psych: Calm
Data Reviewed
-
Total Time Spent with Patient (in minutes): 55
[2024-08-13] MEDS: NOVOLOG FLEXPEN-LOW RESISTANCE 1 UNITS SC (12:57)
[2024-08-13] MEDS: STERILE WATER FOR INJECTION 10 ML IV (14:04)
[2024-08-13] MEDS: ROCEPHIN 1000 MG IV (14:04)
[2024-08-13 15:40] VITALS: BP 137/60
[2024-08-13] MEDS: ROXICODONE PO (16:53)
[2024-08-13 17:00] LABS: Glucose - Point of Care 210 mg/dl (70-99)
[2024-08-13] MEDS: NOVOLOG FLEXPEN-LOW RESISTANCE 2 UNITS SC (17:53)
--- NOTE | 2024-08-13 19:34 | PTCARENOTE ---
PT WITH PRIOR LA INFILTRATE. US AND XRAY COMPLETED, SEE RESULTS. PT STATES THAT LA FEELING BETTER. WARMTH APPLIED, PT STATES THE WARMTH BRINGS HER COMFORT. PT RESTING, PRIMARY RN AWARE
[2024-08-13 19:41] VITALS: BP 125/59
[2024-08-13 21:34] LABS: Glucose - Point of Care 201 mg/dl (70-99)
[2024-08-13 23:35] VITALS: BP 122/70
[2024-08-14 03:22] VITALS: BP 132/74
[2024-08-14] MEDS: SYNTHROID 125 MCG PO (05:54)
[2024-08-14 06:00] VITALS: BMI 28.3
[2024-08-14 06:30] LABS: % Basophils 0.4 % (0-2); % Eosinophils 2.3 % (0-6); % Immature Granulocytes 0.5 % (0-0.5); % Monocytes 10.7 % (1.7-9.3); % Neutrophils 69.1 % (42.2-75.2); Absolute Eosinophils 0.2 10^3/uL (0-0.7); Absolute Immature Granulocytes 0.1 10^3/uL (0-0.05); Absolute Lymphocytes 1.6 10^3/uL (1.2-3.4); Absolute Neutrophils 6.6 10^3/uL (1.4-6.5); Hematocrit 27.7 % (37.0-47.0); Hemoglobin 8.9 g/dL (12.0-16.0); Mean Corp Hgb Conc. 32.1 g/dL (33.0-37.0); Mean Corpuscular Hgb 29.7 pg (27.0-31.0); Mean Corpuscular Volume 92.3 fL (81.0-99.0); Mean Platelet Volume 9.7 fL (7.4-10.4); Nucleated Red Blood Cells % 0 %; Platelet Count 233 10^3/uL (130-400); Red Cell Dist. Width 14.3 % (11.5-14.5); White Blood Cell Count 9.5 10^3/uL (4.8-10.8)
[2024-08-14 06:49] LABS: Blood Urea Nitrogen 21 mg/dl (7-17); Calcium 8.3 mg/dl (8.4-10.2); Carbon Dioxide 23 mmol/L (22-30); Chloride 101 mmol/L (98-107); Estimated Creatinine Clearance 73 ml/min; Glucose 150 mg/dl (70-99); Potassium 3.7 mmol/L (3.5-5.1); Sodium 136 mmol/L (135-145); eGFR > 60.00
[2024-08-14 07:05] VITALS: BP 139/70
[2024-08-14 07:48] LABS: Glucose - Point of Care 178 mg/dl (70-99)
[2024-08-14] MEDS: CRESTOR 20 MG PO (08:20)
[2024-08-14] MEDS: ELIQUIS 5 MG PO ×2 (08:20→20:28)
[2024-08-14] MEDS: LYRICA 75 MG PO ×2 (08:20→20:28)
[2024-08-14] MEDS: WELLBUTRIN XL (24 hour extended release) 300 MG PO (08:20)
[2024-08-14] MEDS: EVISTA 60 MG PO (08:20)
[2024-08-14] MEDS: TOPROL XL 25 MG PO ×2 (08:20→20:29)
[2024-08-14] MEDS: SENOKOT-S 1 TABLET PO ×2 (08:20→20:28)
[2024-08-14] MEDS: ZYLOPRIM 100 MG PO (08:20)
[2024-08-14] MEDS: DESENEX/MITRAZOL/ZEASORB 1 APPLIC TOPICAL ×2 (08:21→20:28)
[2024-08-14] MEDS: MIRALAX 17 GRAMS PO (08:21)
[2024-08-14] MEDS: ROXICODONE 5 MG PO (08:30)
[2024-08-14] MEDS: NOVOLOG FLEXPEN-LOW RESISTANCE 1 UNITS SC ×2 (10:25→18:37)
[2024-08-14] MEDS: DAKIN'S SOLUTION 0.125% 1/4 STRENGTH 473 ML TOPICAL (10:28)
[2024-08-14 11:05] VITALS: BP 142/61
--- NOTE | 2024-08-14 11:50 | CM ---
Addendum entered by Glo Rosario 08/14/24 12:33:
Patient sister Natalie Molina [phone] she requested referrals to [facility]. CM will send referral
Original Note:
Patient seen at bedside. Patient denied plan to go to SNF; [facility]. Patient now states that she plans to go to a personal care facility. She does not know which one. Patient sister Tracy [phone]. CM will call to patient sister to review
plans. CM will continue to follow for discharge planning needs.
Plan; SNF; patient plan is for personal care.
[2024-08-14 11:55] LABS: Glucose - Point of Care 260 mg/dl (70-99)
[2024-08-14] MEDS: MONUROL 3 GM PO (13:05)
[2024-08-14] MEDS: NOVOLOG FLEXPEN-LOW RESISTANCE 3 UNITS SC (13:09)
--- NOTE | 2024-08-14 14:26 | WOUNDNOTE ---
WOC RN note: Patient for possible SNF transfer when bed available. Lumbar wound clean, more pink, periwound rash improved. Sacrum blanchable red. Skin on heels intact (blanchable mild red and intact). Wound vac applied, air overlay applied and
patient turned to L semi side lying position with help from NATALY Garcia. Heels off bed with pillow. Updated Dr. Pate. Wound care orders updated. [place] texted Glo Rosario, Poultry Hatchery Supervisor re: patient will need a wound vac at SNF (small black foam, pump
setting 125mmhg continuous, change q 48-72hours). Discharge orders updated. Next vac change due Wednesday.
--- NOTE | 2024-08-14 15:03 | W.PN.HOSP.TC ---
Today's Communication/Plan
-
d/c planning for snf
Assessment / Plan
Assessment / Plan
#Tachycardia likely secondary to SVT
# atrial fibrillation unknown chronicity
Converted to normal sinus rhythm
Status post off Cardizem infusion
Start patient on metoprolol home dose and increased to BID dosing
Monitor on telemetry
Hold norvasc
Continue with Eliquis
Cardiology signed off.
# Nonischemic myocardial injury
Continue to trend troponin -trop downtrended.
Echocardiogram noted.
#Chronic HFpEF
Echocardiogram noted
Not on diuretics
#Diabetes mellitus
Insulin sliding scale Accu-Cheks and A1c at 6.7
# Leukocytosis likely secondary to suspected E.coli urinary tract infection
Continue with antibiotics rocephin
follow-up on the urine cultures
Chest x-ray negative for acute infiltrates
If spikes fever check blood cultures
# Urinary retention likely secondary to UTI versus pain versus decreased mobility
Bladder scan per the protocol.
#LUE pain
-US negative for dvt
-xray wtih swelling
-?IV infiltration. pain improved. Good radial and ulna pulses. States pain has decreased. Able to flex/extend wrist without any difficulty.
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
Continue with Lyrica
Pain control
Tylenol/oxycodone
Chronic ambulatory dysfunction
Physical & Occupational Therapy-SNF on dc.
Hyperlipidemia
Continue statin
Hypothyroidism
Continue Synthroid
Check TSH-wnl
Hypomagnesemia
Replete and monitor
Primary hypertension
Hold Norvasc as may need to be switched to Cardizem
Continue Toprol
Hold losartan for now
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
Had wound VAC on admission. Discontinued no further need for now.
Wound care fqidhlmeu-rqanso-br recs on Wednesday
Depression
Continue with Wellbutrin
May need to add additional agent
DVT ppx-Eliquis
Full code
Patient not happy with need of going to SNF although not declining to me.
Anticipated Discharge: Within 24 hours
Subjective/Interval History
-
Date of Service: August 14, 2024
Resting comfortably in bed
Patient not happy for being referred to SNF
Denies any palpitations/chest discomfort
Objective Data
-
Labs:
Laboratory Results
08/14/24
06:04
WBC 9.5
Hgb 8.9 L
Hct 27.7 L
Plt Count 233
Sodium 136
Potassium 3.7
Chloride 101
Carbon Dioxide 23
BUN 21 H
Creatinine 0.6
Glucose 150 H
Calcium 8.3 L
Vital Signs:
Vital Signs
Temp Pulse Resp BP Pulse Ox
99.2 F 76 17 142/61 99
08/14/24 11:05 08/14/24 11:05 08/14/24 11:05 08/14/24 11:05 08/14/24 11:05
I&O
08/13/24 08/14/24 08/15/24
06:59 06:59 06:59
Intake Total 180 / 180 720 / 720
Output Total 500 / 500
Balance -320 / -320 720 / 720
Review of Systems
-
Respiratory: Reports No Symptoms
Cardiac: Reports No Symptoms
Abdomen/GI: Reports No Symptoms
Physical Exam
-
General: No Apparent Distress
HEENT: Moist Mucous Membranes
Respiratory: Clear to Auscultation
Cardiac: Regular Rhythm and S1/S2; Negative Murmur, Rub or Gallop
GI: Soft, Nontender and Nondistended; Negative Organomegaly
Musculoskeletal: No Edema
Skin: Negative Rash
Neuro: Awake, Alert, Oriented, AO x 3, No Motor Deficits and Nonfocal/Grossly Intact
Psych: Calm
[2024-08-14 15:05] VITALS: BP 148/77
--- NOTE | 2024-08-14 15:55 | WOUNDNOTE ---
[facility] RN note: Noted vac alarming. Patient's vac tubing was disconnected and clamped. Patient stated she clamped her tubing and suspect she disconnected the tubing as well. Reconnected vac dressing tubing to canister tubing. Vac alarm stopped after
reconnecting the tubing. Instructed patient not to touch the wound vac tubing and to put the nurse call bed on if she has any concerns about her vac. Updated NATALY Garcia.
--- NOTE | 2024-08-14 17:00 | PTCARENOTE ---
Addendum entered by Julia Brown RN 08/14/24 19:43:
patient transferred via bed to room 328. wound vac maintained, dressing intact to lower spine back. denies pain, turns with assist x2, vss, will continue to monitor.
Original Note:
patient transferred via bed to room 328. wound vac maintained, dressing intact to lower spine/sacrum. denies pain, turns with assist x2, vss, will continue to monitor.
--- NOTE | 2024-08-14 17:16 | TRANSFER ---
Report given to NATALY Dumont. Pt transferred via bed from room 336-1 to 328 to be put on contact precautions for ESBL in urine.
--- NOTE | 2024-08-14 17:20 | PTCARENOTE ---
patient transferred via bed to room 328. wound vac maintained, dressing intact to lower spine/sacrum. denies pain, turns with assist x2, vss, will continue to monitor.
[2024-08-14 17:41] LABS: Glucose - Point of Care 180 mg/dl (70-99)
[2024-08-14 19:00] VITALS: BP 149/77
[2024-08-14 20:57] VITALS: BMI 28.3
[2024-08-14 22:05] LABS: Glucose - Point of Care 156 mg/dl (70-99)
[2024-08-14 23:00] VITALS: BP 147/63
[2024-08-15 03:00] VITALS: BP 138/65
[2024-08-15] MEDS: SYNTHROID 125 MCG PO (05:16)
[2024-08-15 06:00] VITALS: BMI 29.3
[2024-08-15 06:40] LABS: % Basophils 0.8 % (0-2); % Eosinophils 2.1 % (0-6); % Immature Granulocytes 0.4 % (0-0.5); % Lymphocytes 19.7 % (20.5-51.1); % Monocytes 10.1 % (1.7-9.3); % Neutrophils 66.9 % (42.2-75.2); Absolute Basophils 0.1 10^3/uL (0-0.2); Absolute Eosinophils 0.2 10^3/uL (0-0.7); Absolute Lymphocytes 1.8 10^3/uL (1.2-3.4); Absolute Monocytes 0.9 10^3/uL (0.1-0.6); Absolute Neutrophils 6.1 10^3/uL (1.4-6.5); Hematocrit 27.9 % (37.0-47.0); Hemoglobin 9.1 g/dL (12.0-16.0); Mean Corp Hgb Conc. 32.6 g/dL (33.0-37.0); Mean Corpuscular Hgb 29.1 pg (27.0-31.0); Mean Corpuscular Volume 89.1 fL (81.0-99.0); Mean Platelet Volume 9.9 fL (7.4-10.4); Nucleated Red Blood Cells % 0 %; Platelet Count 240 10^3/uL (130-400); Red Blood Cell Count 3.13 10^6/uL (4.20-5.40); Red Cell Dist. Width 14.3 % (11.5-14.5); White Blood Cell Count 9.1 10^3/uL (4.8-10.8)
[2024-08-15 07:26] LABS: Blood Urea Nitrogen 15 mg/dl (7-17); Calcium 8.6 mg/dl (8.4-10.2); Carbon Dioxide 22 mmol/L (22-30); Chloride 99 mmol/L (98-107); Estimated Creatinine Clearance 74 ml/min; Glucose 164 mg/dl (70-99); Potassium 3.9 mmol/L (3.5-5.1); Sodium 133 mmol/L (135-145); eGFR > 60.00
[2024-08-15 07:44] VITALS: BP 113/69
[2024-08-15 07:46] LABS: Glucose - Point of Care 175 mg/dl (70-99)
[2024-08-15] MEDS: ROXICODONE 5 MG PO ×2 (09:05→17:25)
[2024-08-15] MEDS: WELLBUTRIN XL (24 hour extended release) 300 MG PO (09:05)
[2024-08-15] MEDS: MIRALAX 17 GRAMS PO (09:05)
[2024-08-15] MEDS: CRESTOR 20 MG PO (09:05)
[2024-08-15] MEDS: EVISTA 60 MG PO (09:06)
[2024-08-15] MEDS: LYRICA 75 MG PO ×2 (09:06→20:17)
[2024-08-15] MEDS: ELIQUIS 5 MG PO ×2 (09:06→20:17)
[2024-08-15] MEDS: SENOKOT-S 1 TABLET PO ×2 (09:06→20:17)
[2024-08-15] MEDS: TOPROL XL 25 MG PO ×2 (09:06→20:18)
[2024-08-15] MEDS: DESENEX/MITRAZOL/ZEASORB 1 APPLIC TOPICAL ×2 (09:07→20:18)
[2024-08-15] MEDS: ZYLOPRIM 100 MG PO (09:07)
[2024-08-15] MEDS: NOVOLOG FLEXPEN-LOW RESISTANCE 1 UNITS SC (09:08)
[2024-08-15] MEDS: TYLENOL 650 MG PO ×2 (10:46→18:56)
--- NOTE | 2024-08-15 11:06 | CM ---
Addendum entered by Glo Rosario 08/15/24 16:38:
family unable to complete financial application and [facility] is not able to hold bed.
Addendum entered by Glo Rosario 08/15/24 13:27:
[facility] is now asking family for LTC application due to length of time that patient was at [facility]. They now anticipate accepting patient tomorrow.
Addendum entered by Glo Rosario 08/15/24 11:42:
Patient tentatively accepted at [facility] in [place]. CM awaiting confirmation and facility to call patient sister Natalie to confirm. CM will continue to follow for discharge planning needs.
Original Note:
CM received call from Natalie patient sister and reviewed options accepting patient; [place] and [facility] accepting patient family do not prefer those options, CM also reviewed concern with wound vac and sent additional referral to [facility]
[place]. Patient sister indicated that they now prefer patient to go to [facility] and CM called to [facility] to request review. [facility] with no beds. Patient sister requesting capacity assessment. CM
will update physician. CM will continue to follow for discharge planning needs.
Plan; SNF
[2024-08-15 11:14] VITALS: BP 136/66
[2024-08-15 11:33] LABS: Glucose - Point of Care 228 mg/dl (70-99)
[2024-08-15] MEDS: NOVOLOG FLEXPEN-LOW RESISTANCE 2 UNITS SC ×2 (12:50→17:25)
--- NOTE | 2024-08-15 14:24 | W.PN.HOSP.TC ---
Today's Communication/Plan
-
discharge postponed for tomorrow due to bed availability
Assessment / Plan
Assessment / Plan
#Tachycardia likely secondary to SVT
# atrial fibrillation unknown chronicity
Converted to normal sinus rhythm
Status post off Cardizem infusion
Start patient on metoprolol home dose and increased to BID dosing
Monitor on telemetry
Hold norvasc
Continue with Eliquis
Cardiology signed off.
# Nonischemic myocardial injury
Continue to trend troponin -trop downtrended.
Echocardiogram noted.
#Chronic HFpEF
Echocardiogram noted
Not on diuretics
#Diabetes mellitus
Insulin sliding scale Accu-Cheks and A1c at 6.7
# Leukocytosis likely secondary to suspected E.coli urinary tract infection
Continue with antibiotics rocephin
follow-up on the urine cultures
Chest x-ray negative for acute infiltrates
If spikes fever check blood cultures
# Urinary retention likely secondary to UTI versus pain versus decreased mobility
Bladder scan per the protocol.
#LUE pain
-US negative for dvt
-xray wtih swelling
-?IV infiltration. pain improved. Good radial and ulna pulses. States pain has decreased. Able to flex/extend wrist without any difficulty.
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
Continue with Lyrica
Pain control
Tylenol/oxycodone
Chronic ambulatory dysfunction
Physical & Occupational Therapy-SNF on dc.
Hyperlipidemia
Continue statin
Hypothyroidism
Continue Synthroid
Check TSH-wnl
Hypomagnesemia
Replete and monitor
Primary hypertension
Hold Norvasc as may need to be switched to Cardizem
Continue Toprol
Hold losartan for now
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
Had wound VAC on admission. Discontinued no further need for now.
Wound care lqiftciya-ftgzef-cy recs on Wednesday
Depression
Continue with Wellbutrin
May need to add additional agent
DVT ppx-Eliquis
Full code
Anticipated Discharge: Within 24 hours
Subjective/Interval History
-
Date of Service: August 15, 2024
Patient tearful was have not seen her cats for last 2 months
Denies of having any chest discomfort/palpitation/dizziness
patient mood is flat
Objective Data
-
Labs:
Laboratory Results
08/15/24
06:21
WBC 9.1
Hgb 9.1 L
Hct 27.9 L
Plt Count 240
Sodium 133 L
Potassium 3.9
Chloride 99
Carbon Dioxide 22
BUN 15
Creatinine 0.6
Glucose 164 H
Calcium 8.6
Vital Signs:
Vital Signs
Temp Pulse Resp BP Pulse Ox
97.8 F 63 16 136/66 97
08/15/24 11:14 08/15/24 11:14 08/15/24 11:14 08/15/24 11:14 08/15/24 11:14
I&O
08/14/24 08/15/24 08/16/24
06:59 06:59 06:59
Intake Total 720 / 720 900 / 900
Output Total 250 / 250
Balance 720 / 720 900 / 900 -250 / -250
Review of Systems
-
Respiratory: Reports No Symptoms
Cardiac: Reports No Symptoms
Abdomen/GI: Reports No Symptoms
Physical Exam
-
General: No Apparent Distress
HEENT: Moist Mucous Membranes
Respiratory: Clear to Auscultation
Cardiac: Regular Rhythm and S1/S2; Negative Murmur, Rub or Gallop
GI: Soft, Nontender and Nondistended; Negative Organomegaly
Musculoskeletal: No Edema
Skin: Other (Sacral wound vac in place); Negative Rash
Neuro: Awake, Alert, Oriented, AO x 3, No Motor Deficits and Nonfocal/Grossly Intact
Psych: Calm
[2024-08-15 14:59] VITALS: BP 127/63
[2024-08-15 16:33] LABS: Glucose - Point of Care 201 mg/dl (70-99)
--- NOTE | 2024-08-15 18:38 | PTCARENOTE ---
patient is currently with [facility], that has been placed on hold
[2024-08-15 21:50] LABS: Glucose - Point of Care 282 mg/dl (70-99)
[2024-08-15 23:00] VITALS: BP 120/72
[2024-08-16] MEDS: SYNTHROID 125 MCG PO (05:34)
[2024-08-16 06:00] VITALS: BMI 28.9
[2024-08-16 07:22] VITALS: BP 140/91
[2024-08-16 07:43] LABS: Glucose - Point of Care 177 mg/dl (70-99)
[2024-08-16] MEDS: NOVOLOG FLEXPEN-LOW RESISTANCE 1 UNITS SC (08:35)
[2024-08-16] MEDS: DESENEX/MITRAZOL/ZEASORB 1 APPLIC TOPICAL (08:35)
[2024-08-16] MEDS: CRESTOR 20 MG PO (08:42)
[2024-08-16] MEDS: SENOKOT-S PO (08:42)
[2024-08-16] MEDS: WELLBUTRIN XL (24 hour extended release) 300 MG PO (08:42)
[2024-08-16] MEDS: MIRALAX PO (08:42)
[2024-08-16] MEDS: TOPROL XL 25 MG PO (08:42)
[2024-08-16] MEDS: LYRICA 75 MG PO (08:42)
[2024-08-16] MEDS: EVISTA 60 MG PO (08:42)
[2024-08-16] MEDS: TYLENOL 650 MG PO ×2 (08:43→15:03)
[2024-08-16] MEDS: ELIQUIS 5 MG PO (08:44)
[2024-08-16] MEDS: ZYLOPRIM 100 MG PO (08:44)
--- NOTE | 2024-08-16 09:14 | CM ---
Addendum entered by Glo Rosario 08/16/24 13:03:
Patient updated and is in agreement. Patient sister updated and IMM emailed to patient sister [email or web address]. amblance scheduled for 5pm. CM will continue to follow for discharge planning needs.
Please call report to [phone]/fax [phone].
Addendum entered by Glo Rosario 08/16/24 11:31:
Patient accepted at [facility] with LTC application approved per Lashay at [facility]. Please call report to [phone]/fax [phone]. CM will complete transportation forms and call sister about IMM. CM will continue to follow for discharge planning
needs.
Plan; transfer to [facility]
Original Note:
CM spoke with patient daughter and she states that they are still working on completing application for [facility], CM spoke with Tressa at [facility] and they continue to work with family. CM will continue to follow for discharge planning needs.
Plan; SNF
[2024-08-16 10:43] VITALS: O2SAT 96
[2024-08-16 11:46] LABS: Glucose - Point of Care 324 mg/dl (70-99)
--- NOTE | 2024-08-16 13:01 | WOUNDNOTE ---
WOC RN note: t/c Spoke with NATALY Oliveira who will remove patient's vac dressing and place a saline gauze dressing for transfer to SNF and place rental vac Ulta pump in soiled utility room. SNF will apply their own vac.
[2024-08-16] MEDS: NOVOLOG FLEXPEN-LOW RESISTANCE 4 UNITS SC (13:14)
--- NOTE | 2024-08-16 13:44 | W.PN.HOSP.TC ---
Today's Communication/Plan
-
d/c snf rehab
Assessment / Plan
Assessment / Plan
#Tachycardia likely secondary to SVT
# atrial fibrillation unknown chronicity
Converted to normal sinus rhythm
Status post off Cardizem infusion
Start patient on metoprolol home dose and increased to BID dosing
Monitor on telemetry
Hold norvasc
Continue with Eliquis
Cardiology signed off.
# Nonischemic myocardial injury
Continue to trend troponin -trop downtrended.
Echocardiogram noted.
#Chronic HFpEF
Echocardiogram noted
Not on diuretics
#Diabetes mellitus
Insulin sliding scale Accu-Cheks and A1c at 6.7
# Leukocytosis likely secondary to suspected E.coli urinary tract infection
Continue with antibiotics rocephin
follow-up on the urine cultures
Chest x-ray negative for acute infiltrates
If spikes fever check blood cultures
# Urinary retention likely secondary to UTI versus pain versus decreased mobility
Bladder scan per the protocol.
#LUE pain
-US negative for dvt
-xray wtih swelling
-?IV infiltration. pain improved. Good radial and ulna pulses. States pain has decreased. Able to flex/extend wrist without any difficulty.
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
Continue with Lyrica
Pain control
Tylenol/oxycodone
Chronic ambulatory dysfunction
Physical & Occupational Therapy-SNF on dc.
Hyperlipidemia
Continue statin
Hypothyroidism
Continue Synthroid
Check TSH-wnl
Hypomagnesemia
Replete and monitor
Primary hypertension
Hold Norvasc as may need to be switched to Cardizem
Continue Toprol
Hold losartan for now
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
Had wound VAC on admission. Discontinued no further need for now.
Wound care [id number] recs on Wednesday
Depression
Continue with Wellbutrin
May need to add additional agent
DVT ppx-Eliquis
Full code
More than 30 minutes spent in discharge including
Final examination of the patient
Summarizing hospital stay
Instructions for continuing care to all relevant caregivers
Preparation of discharge records, prescriptions, and referral forms
Total time spent (in minutes): 38 mins
Anticipated Discharge: Today
Subjective/Interval History
-
Date of Service: August 16, 2024
No new complaints overnight
Objective Data
-
Vital Signs:
Vital Signs
Temp Pulse Resp BP Pulse Ox
98.0 F 65 16 140/91 97
08/16/24 07:22 08/16/24 08:42 08/16/24 07:22 08/16/24 08:42 08/16/24 07:22
I&O
08/15/24 08/16/24 08/17/24
06:59 06:59 06:59
Intake Total 900 / 900 360 / 360 240 / 240
Output Total 550 / 550
Balance 900 / 900 -190 / -190 240 / 240
Review of Systems
-
Respiratory: Reports No Symptoms
Cardiac: Reports No Symptoms
Abdomen/GI: Reports No Symptoms
Physical Exam
-
General: No Apparent Distress
HEENT: Moist Mucous Membranes
Respiratory: Clear to Auscultation
Cardiac: Regular Rhythm and S1/S2; Negative Murmur, Rub or Gallop
GI: Soft, Nontender and Nondistended; Negative Organomegaly
Musculoskeletal: No Edema
Skin: Other (Sacral wound vac in place); Negative Rash
Neuro: Awake, Alert, Oriented, AO x 3, No Motor Deficits and Nonfocal/Grossly Intact
Psych: Calm
[2024-08-16 15:14] VITALS: BP 125/76
[2024-08-16 16:26] LABS: Glucose - Point of Care 229 mg/dl (70-99)
[2024-08-16] MEDS: NOVOLOG FLEXPEN-LOW RESISTANCE 2 UNITS SC (17:34)
== END 2024-08-16 17:54 | DRG 689 ==
LOC: 3 WEST ACU 15:44
PROVIDERS: Registered Nurse; ADMITTING PHYSICIAN Hospitalist; ATTENDING PHYSICIAN Hospitalist; CONSULT PHYSICIAN Internal Medicine; EMERGENCY PHYSICIAN Emergency Medicine
DX: N39.0 Urinary tract infection, site not specified (principal); L89.104 Pressure ulcer of unspecified part of back, stage 4; I47.19 Other supraventricular tachycardia; I50.32 Chronic diastolic (congestive) heart failure; I5A Non-ischemic myocardial injury (non-traumatic); I48.0 Paroxysmal atrial fibrillation; Z91.81 History of falling; F32.A Depression, unspecified; Z92.3 Personal history of irradiation; Z90.10 Acquired absence of unspecified breast and nipple; Z85.3 Personal history of malignant neoplasm of breast; G62.0 Drug-induced polyneuropathy; T45.1X5A Adverse effect of antineoplastic and immunosuppressive drugs, initial encounter; E11.9 Type 2 diabetes mellitus without complications; M10.9 Gout, unspecified; E03.9 Hypothyroidism, unspecified; E66.09 Other obesity due to excess calories; Z68.28 Body mass index [BMI] 28.0-28.9, adult; B96.20 Unspecified Escherichia coli [E. coli] as the cause of diseases classified elsewhere; E78.5 Hyperlipidemia, unspecified; E83.42 Hypomagnesemia; I11.0 Hypertensive heart disease with heart failure; E78.00 Pure hypercholesterolemia, unspecified; Z79.01 Long term (current) use of anticoagulants; Z79.4 Long term (current) use of insulin; Z79.890 Hormone replacement therapy; Z79.899 Other long term (current) drug therapy; Z87.891 Personal history of nicotine dependence; Z90.710 Acquired absence of both cervix and uterus
CPT/HCPCS: 51701; 71045; 73090; 73120; 80048; 80053; 81003; 81015; 82962; 83036; 83605; 83735; 83880; 84443; 84484; 85025; 85610; 85730; 87077; 87086; 87186; 93005; 93306; 93971; 96365; 96366; 96375; 97116; 97163; 97167; 97530; 99291